=== PATIENT | female | born 1945 | race Caucasian/White ===

== ENCOUNTER 2016-12-05 09:21 | Outpatient (CLI) | payer MEDICARE, BC | END 2016-12-05 09:22 | disposition home or self-care (01) | DX: K76.0 Fatty (change of) liver, not elsewhere classified (principal); K76.89 Other specified diseases of liver; Q61.02 Congenital multiple renal cysts ==

== ENCOUNTER 2017-06-16 08:21 | Outpatient (CLI) | payer MEDICARE, BC ==
[2017-06-16 08:50] LABS: BASOPHILS % (AUTO) 0.9 %; EOSINOPHILS # (AUTO) 0.3 10^3/uL (0.0-0.7); EOSINOPHILS % (AUTO) 6.8 %; HCT - HEMATOCRIT 41.2 % (37.0-47.0); HGB - HEMOGLOBIN 13.5 g/dL (12.0-16.0); LYMPHOCYTES # (AUTO) 1.7 10^3/uL (1.5-3.5); LYMPHOCYTES % (AUTO) 38.2 %; MEAN CORPUSCULAR HEMOGLOBIN 27.9 pg (27.0-31.0); MEAN CORPUSCULAR HGB CONC 32.7 g/dL (32.0-36.0); MEAN CORPUSCULAR VOLUME 85.2 fL (81.0-99.0); MEAN PLATELET VOLUME 7.2 fL (7.9-10.8); MONOCYTES # (AUTO) 0.4 10^3/uL (0.0-1.0); MONOCYTES % (AUTO) 9.7 %; NEUTROPHILS # (AUTO) 1.9 10^3/uL (1.5-6.6); NEUTROPHILS % (AUTO) 44.4 %; RED BLOOD COUNT 4.83 10^6/uL (4.20-5.40); RED CELL DISTRIBUTION WIDTH 13.7 % (12.0-15.0); UNCORRECTED WHITE BLOOD COUNT 4.4 x10^3/uL; WHITE BLOOD COUNT 4.4 x10^3/uL (4.8-10.8)
[2017-06-16 09:14] LABS: ALBUMIN/GLOBULIN RATIO 1.4 (1.0-2.2); BILIRUBIN,TOTAL 0.5 mg/dL (0.2-1.0); BUN - BLOOD UREA NITROGEN 15 mg/dL (6-20); CALCIUM 9.3 mg/dL (8.5-10.3); CARBON DIOXIDE - CO2 28 mmol/L (21-32); CHLORIDE 103 mmol/L (101-111); CHOL/HDL RATIO 4.6 (<4.4); CHOLESTEROL 269 mg/dL; CREATININE 0.9 mg/dL (0.4-1.0); GFR - MDRD 62 (>89); GLUCOSE 96 mg/dL (70-100); HDL CHOLESTEROL 59 mg/dL; LDL/HDL RATIO 3.2 (<4.4); POTASSIUM 3.6 mmol/L (3.5-5.0); SODIUM 140 mmol/L (135-145); TOTAL PROTEIN 7.3 g/dL (6.7-8.2); TRIGLYCERIDES 122 mg/dL; VLDL CHOLESTEROL 24 mg/dL
[2017-06-16 09:25] LABS: THYROID STIMULATING HORMONE 2.14 uIU/mL (0.34-5.60)
[2017-06-16 09:32] LABS: FERRITIN 20.8 ng/mL (11.0-306.8)
== END 2017-06-16 08:22 | disposition home or self-care (01) ==
LOC: LAB 08:21
PROVIDERS: ATTEND Physician Assistant Medical
DX: E53.8 Deficiency of other specified B group vitamins (principal); D50.9 Iron deficiency anemia, unspecified; Z11.59 Encounter for screening for other viral diseases; Z72.89 Other problems related to lifestyle; I10 Essential (primary) hypertension; G43.909 Migraine, unspecified, not intractable, without status migrainosus; E78.2 Mixed hyperlipidemia; Z79.899 Other long term (current) drug therapy
CPT/HCPCS: 36415; 80053; 80061; 82607; 82728; 84443; 85025; 86803

== ENCOUNTER 2018-09-10 11:54 | Outpatient (CLI) | payer MEDICARE, BC ==
--- NOTE | 2018-09-10 12:36 | XRAY Report ---
Reason: TOE PAIN, RIGHT Procedure Date: 09/10/2018 Accession Number: [id number] / [id number] Procedure: XR - Foot 3 View RT CPT Code: FULL RESULT: EXAM: RIGHT FOOT RADIOGRAPHY EXAM DATE: 09/10/2018 12:05 PM. CLINICAL HISTORY: Toe pain, right. COMPARISON: None. TECHNIQUE: 3 views. FINDINGS: Bones: Fracture at the base of the fifth proximal phalanx without definite intra-articular extension demonstrated. Mild inferior calcaneal spurring. No fractures or bone lesions. Joints: Normal. No subluxations. Soft Tissues: Soft tissue swelling of the fifth toe. IMPRESSION: Fracture proximal fifth phalanx. RADIA The above findings of toe fracture were discussed with Sarah Grady by Dr. Yony Mobley at 12:34 hrs on 09/10/18.
== END 2018-09-10 11:55 | disposition home or self-care (01) ==
LOC: DI 11:54
PROVIDERS: ATTEND Physician Assistant Medical
DX: S92.511A Displaced fracture of proximal phalanx of right lesser toe(s), initial encounter for closed fracture (principal)

== ENCOUNTER 2018-10-17 08:00 | Outpatient (CLI) | payer MEDICARE, BC ==
[2018-10-17 13:31] LABS: BASOPHILS % (AUTO) 0.6 %; EOSINOPHILS # (AUTO) 0.1 10^3/uL (0.0-0.7); EOSINOPHILS % (AUTO) 2.5 %; HGB - HEMOGLOBIN 14.1 g/dL (12.0-16.0); LYMPHOCYTES # (AUTO) 1.3 10^3/uL (1.5-3.5); LYMPHOCYTES % (AUTO) 30.4 %; MEAN CORPUSCULAR HEMOGLOBIN 28.7 pg (27.0-31.0); MEAN CORPUSCULAR HGB CONC 33.4 g/dL (32.0-36.0); MEAN CORPUSCULAR VOLUME 85.9 fL (81.0-99.0); MEAN PLATELET VOLUME 7.7 fL (7.9-10.8); MONOCYTES # (AUTO) 0.4 10^3/uL (0.0-1.0); MONOCYTES % (AUTO) 9.2 %; NEUTROPHILS # (AUTO) 2.4 10^3/uL (1.5-6.6); NEUTROPHILS % (AUTO) 57.3 %; PLT - PLATELET COUNT 213 10^3/uL (130-450); RED BLOOD COUNT 4.93 10^6/uL (4.20-5.40); RED CELL DISTRIBUTION WIDTH 14.2 % (12.0-15.0); WHITE BLOOD COUNT 4.2 x10^3/uL (4.8-10.8)
[2018-10-17 13:44] LABS: ALBUMIN/GLOBULIN RATIO 1.3 (1.0-2.2); BILIRUBIN,TOTAL 0.7 mg/dL (0.2-1.0); CALCIUM 8.8 mg/dL (8.5-10.3); CREATININE 0.8 mg/dL (0.4-1.0); MAGNESIUM 2.1 mg/dL (1.7-2.8); TOTAL PROTEIN 7.1 g/dL (6.7-8.2)
[2018-10-17 14:08] LABS: TOTAL T3 1.89 ng/mL (0.87-1.78)
== END 2018-10-17 23:59 | disposition home or self-care (01) ==
LOC: LAB.R 08:00
PROVIDERS: ATTEND Physician Assistant Medical
DX: I10 Essential (primary) hypertension (principal); R00.2 Palpitations; Z79.899 Other long term (current) drug therapy
CPT/HCPCS: 80053; 83735; 84443; 84480; 85025

== ENCOUNTER 2018-10-31 12:50 | Outpatient (CLI) | payer MEDICARE, BC ==
--- NOTE | 2018-11-01 08:50 | Mammography Report ---
Reason: SCREENING MAMMO Procedure Date: 10/31/2018 Accession Number: [id number] / [id number] Procedure: ANDREIA - Screening Mammo w/Morris CPT Code: FULL RESULT: EXAM: Screening Mammo w/Morris DATE: 10/31/2018 1:35 PM CLINICAL HISTORY: Screening encounter. Family history of breast cancer in a sister at the age of 74. History of benign right breast biopsy. TECHNIQUE: Bilateral CC and MLO views were obtained. COMPARISON: 07/06/2017 through 11/20/2013. FINDINGS: The breasts demonstrate scattered fibroglandular densities bilaterally. There are coarse typically benign calcifications. A focal asymmetry in the left breast seen on CC slice 14 approximately 8.5 cm from the nipple measures 0.8 cm and is questionably present on previous examinations but less prominent. The finding is also seen approximately 8 cm from the nipple on the left MLO view where it comes into focus on slice 61, upper central left breast finding. This requires additional evaluation by spot magnification views and if applicable ultrasound. No suspicious masses, clustered microcalcifications, or regions of architectural distortion are identified in the right breast. IMPRESSION: Incomplete examination RECOMMENDATION: Additional evaluation as above. Spot evaluation of the left upper central breast, possibly additional ultrasound. BIRADS CATEGORY 0: Incomplete examination STANDARD QUALIFYING STATEMENTS: 1. This examination was not reviewed with the aid of Computer-Aided Detection (CAD). 2. A negative or benign imaging report should not delay biopsy if clinically suspicious findings are present. Consider surgical consultation if warrented. More than 5% of cancers are not identified by imaging. 3. Dense breasts may obscure an underlying neoplasm. 4. This examination was reviewed with the aid of 3D breast imaging (tomosynthesis).
== END 2018-10-31 12:51 | disposition home or self-care (01) ==
LOC: DI 12:50
DX: Z12.31 Encounter for screening mammogram for malignant neoplasm of breast (principal); Z80.3 Family history of malignant neoplasm of breast
CPT/HCPCS: 77063; 77067

== ENCOUNTER 2018-11-08 09:41 | Outpatient (CLI) | payer MEDICARE, BC ==
--- NOTE | 2018-11-08 14:49 | Mammography Report ---
Reason: ABN MAMMO - LT SPEC VIEWS Procedure Date: 11/08/2018 Accession Number: [id number] / [id number] Procedure: ANDREIA - Diag Special Views Dig LT CPT Code: FULL RESULT: EXAM: Diag Special Views Dig LT DATE: 11/08/2018 10:37 AM CLINICAL HISTORY: Diagnostic examination. Patient is recalled from screening for a left breast focal asymmetry. TECHNIQUE: Left breast ML and spot MLO as well as spot CC images are obtained. Focused left breast ultrasound is performed. COMPARISON: 10/31/2018 through 11/20/2013. FINDINGS: Left breast demonstrates scattered fibroglandular densities. The left breast focal asymmetry resolves mammographically with spot views as well as on tomography. Focused left breast ultrasound identifies normal breast tissue as well as a typically benign appearing lymph node at the 2:00 position 8 cm from the nipple measures up to 0.9 cm and is separately confirmed mammographically and a simple 0.7 cm cyst 1 cm from the nipple which is also separately confirmed mammographically. No suspicious findings are sonographically seen in the region of the previous focal asymmetry. The previous focal asymmetry therefore represents overlap of normal breast tissue. No suspicious calcifications, masses or architectural distortion are identified. IMPRESSION: Benign findings RECOMMENDATION: Recommend routine annual Screening mammography unless otherwise clinically indicated. BIRADS CATEGORY 2: Benign findings STANDARD QUALIFYING STATEMENTS: 1. This examination was not reviewed with the aid of Computer-Aided Detection (CAD). 2. A negative or benign imaging report should not delay biopsy if clinically suspicious findings are present. Consider surgical consultation if warrented. More than 5% of cancers are not identified by imaging. 3. Dense breasts may obscure an underlying neoplasm. 4. This examination was reviewed with the aid of 3D imaging (tomography).
== END 2018-11-08 09:42 | disposition home or self-care (01) ==
LOC: DI 09:41
PROVIDERS: ATTEND Physician Assistant Medical
DX: R92.8 Other abnormal and inconclusive findings on diagnostic imaging of breast (principal)
CPT/HCPCS: 76642

== ENCOUNTER 2019-06-13 09:57 | Emergency (ER) | payer MEDICARE, BC ==
--- NOTE | 2019-06-13 10:21 | ED Physician Documentation ---
History of Present Illness - Stated complaint Stated Complaint: SYNCOPE/ALOC - Additonal information Additional information: This is a 74-year-old female with a history of hypertension, hypothyroidism, presents of an episode of syncope. Patient states around an hour prior to arr ival she got up and was pouring herself a cup of coffee and she began to feel lightheaded, and then she passed out for just 1 second or so. She fell and hit her right elbow which is a little sore but she is able to move it without issue. She does not think she hit her head. She denies any chest pain, or shortness of breath. She has not had syncope in the past. No feeling of palpitations, no weakness or numbness. Patient states she does feel a little "out of it", and her states that around the event she was having trouble remembering the date. She denies headache, though she has a history of ocular migraines. She states that she has never had a migraine that has presented like this. Review of Systems Constitutional: denies: Fever Eyes: denies: Loss of vision Nose: denies: Congestion Cardiac: denies: Chest pain / pressure Respiratory: denies: Dyspnea GI: denies: Abdominal Pain : denies: Dysuria Skin: denies: Rash Musculoskeletal: denies: Neck pain Neurologic: reports: Syncope. denies: Numbness Immunocompromised: denies: Immunocompromised PD PAST MEDICAL HISTORY - Past Medical History Cardiovascular: Hypertension, High cholesterol Respiratory: None Endocrine/Autoimmune: None GI: GERD, Diverticulitis : None HEENT: Chronic sinusitis Psych: None Musculoskeletal: Osteoarthritis Derm: None - Past Surgical History Past Surgical History: Yes General: Colonoscopy Ortho: Arthroscopic surgery, Other - Present Medications Home Medications: Ambulatory Orders Medication Instructions Recorded Confirmed Lisinopril 20 mg PO DAILY 10/09/13 08/24/14 Omeprazole 20 mg PO ONCEDAILY 10/09/13 08/24/14 Fluticasone [Flonase] 1 sprays ANABELL DAILY 08/13/14 08/24/14 ALPRAZolam [Xanax] 0.25 mg PO ONCE PRN 08/15/14 08/24/14 Oxycodone HCl/Acetaminophen 1 - 2 tab QID PRN 08/24/14 08/24/14 [Percocet 5-325 mg Tablet] - Allergies Allergies/Adverse Reactions: Allergies Allergy/AdvReac Type Severity Reaction Status Date / Time lactose AdvReac Intermediate Cramps Uncoded 06/13/19 10:21 - Social History Does the pt smoke?: No Smoking Status: Never smoker Does the pt drink ETOH?: Yes Does the pt have substance abuse?: No - Immunizations Immunizations are current?: Yes PD ED PE NORMAL - Vitals Vital signs reviewed: Yes - General General: Alert and oriented X 3, No acute distress - HEENT HEENT: Atraumatic, PERRL - Neck Neck: Supple, no meningeal sign - Cardiac Cardiac: RRR, No murmur - Respiratory Respiratory: No respiratory distress, Clear bilaterally - Abdomen Abdomen: Soft, Non tender, Non distended - Derm Derm: Warm and dry - Extremities Extremities: Other (Mild edema and slight tenderness of the right elbow with full range of motion of the elbow. 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 No dysphasia. No arm or leg drift.) - Psych Psych: Normal mood, Normal affect Results - Vitals Vitals: Vital Signs - 24 hr 06/13/19 06/13/19 06/13/19 10:00 10:37 11:04 Temperature 36.8 C Heart Rate 88 89 90 Respiratory 16 16 14 Rate Blood Pressure 140/82 H 152/77 H 131/70 H O2 Saturation 99 100 97 06/13/19 06/13/19 11:44 12:40 Temperature 37.0 C Heart Rate 87 89 Respiratory 15 21 Rate Blood Pressure 127/62 126/71 O2 Saturation 96 98 Oxygen O2 Source Room air - EKG (time done) 10:04 Other comments: Other comments (Rate 87, rhythm sinus, there is no ST segment elevation or depression. Low voltage in precordial leads. Left axis deviation and borderline left ventricular hypertrophy by voltage criteria in aVL.) - Labs Labs: Laboratory Tests 06/13/19 06/13/19 06/13/19 10:20 10:20 10:25 WBC 5.6 RBC 4.92 Hgb 13.7 Hct 44.2 MCV 89.8 MCH 27.8 MCHC 31.0 L RDW 13.4 Plt Count 196 MPV 9.0 Neut # (Auto) 4.4 Lymph # (Auto) 0.5 L Hunt # (Auto) 0.4 Eos # (Auto) 0.1 Baso # (Auto) 0.0 Absolute Nucleated RBC 0.00 Nucleated RBC % 0.0 Sodium 138 Potassium 3.9 Chloride 103 Carbon Dioxide 26 Anion Gap 9.0 BUN 24 H Creatinine 0.9 Estimated GFR (MDRD) 62 L Glucose 103 H Calcium 9.0 Total Bilirubin 0.7 AST 19 ALT 14 Alkaline Phosphatase 40 L Troponin I High Sens 5.0 Total Protein 6.9 Albumin 4.1 Globulin 2.8 Albumin/Globulin Ratio 1.5 Lipase 38 Urine Color Urine Clarity Urine pH Ur Specific Fork Urine Protein Urine Glucose (UA) Urine Ketones Urine Occult Blood Urine Nitrite Urine Bilirubin Urine Urobilinogen Ur Leukocyte Esterase Urine RBC Urine WBC Ur Squamous Epith Cells Urine Bacteria Ur Microscopic Review Urine Culture Comments 06/13/19 11:51 WBC RBC Hgb Hct MCV MCH MCHC RDW Plt Count MPV Neut # (Auto) Lymph # (Auto) Hunt # (Auto) Eos # (Auto) Baso # (Auto) Absolute Nucleated RBC Nucleated RBC % Sodium Potassium Chloride Carbon Dioxide Anion Gap BUN Creatinine Estimated GFR (MDRD) Glucose Calcium Total Bilirubin AST ALT Alkaline Phosphatase Troponin I High Sens Total Protein Albumin Globulin Albumin/Globulin Ratio Lipase Urine Color YELLOW Urine Clarity CLEAR Urine pH 6.0 Ur Specific Fork 1.010 Urine Protein NEGATIVE Urine Glucose (UA) NEGATIVE Urine Ketones NEGATIVE Urine Occult Blood SMALL H Urine Nitrite NEGATIVE Urine Bilirubin NEGATIVE Urine Urobilinogen 0.2 (NORMAL) Ur Leukocyte Esterase NEGATIVE Urine RBC 0-5 Urine WBC 0-3 Ur Squamous Epith Cells MANY Squamous H Urine Bacteria None Seen Ur Microscopic Review INDICATED Urine Culture Comments NOT INDICATED - Rads (name of study) CT head WO Radiology: Other (No acute intracranial hemorrhage or abnormality. Old lacunar infarcts.) CXR Radiology: Other (No acute cardiopulmonary abnormality) POC echo Radiology: Other ([id number] bedside echocardiogram shows no pericardial effusion, grossly normal ejection fraction.) PD MEDICAL DECISION MAKING - ED course Complexity details: considered differential (Dehydration, vasovagal episode, seizure, dysrhythmia, ACS, migraine, stroke, orthostatic hypotension, electrolyte abnormality) ED course: Pt presents with brief syncope and her also states she had slight confusion around the time of the syncope. Her neurologic exam is completely normal. She never had any numbness, weakness, slurred speech, or facial droop and has no signs of stroke or TIA, which would also be unlikely to cause syncope. No features to suggest seizure. NOosigns of infection. She has no chest pain, shortness of breath, or palpitations, her EKG shows no signs of dysrhythmia or ischemia, bedside echo shows grossly normal LVEF and no pe ricardial effusion, and her troponin and CXR are negative, making cardiac cause of her syncope unlikely. Labs are unremarkable. CT head is negative for acute intracranial abnormality. On re-evaluation patient is well-appearing, and asymptomatic, with a normal neurologic exam. UA negative for infection. I discussed with patient that I am not sure what caused her syncope, there may have been an orthostatic component. Her confusion may have been from a concussion, or possibly an atypical migraine, but it has resolved at this time. I discussed return precautions including any syncope, seizure, chest pain, shortness of breath, confusion, weakness, numbness, or other concerning symptoms. I emphasized the importance of close PCP follow up. Patient verbalized understanding and was discharged in the care of her . Departure - Departure Disposition: 01 Home, Self Care Clinical Impression: Syncope Qualifiers: Syncope type: unspecified Qualified Code(s): R55 - Syncope and collapse Condition: Good Instructions: ED Fainting Unkn Cause Follow-Up: Albaro Tyler MD [Primary Care Provider] - Within 1 week Comments: You were seen today for passing out and an episode of confusion. Your labs and CT scan do not show an obvious cause of your symptoms. Given that you are feeling better, I think it is safe for you to follow-up with your primary care provider. If you develop any recurrence of your confusion, more episodes of passing out, chest pain, palpitations, severe headache, fever, or any other concerning symptoms, return to the emergency department. Discharge Date/Time: 06/13/19 12:40
[2019-06-13 10:35] LABS: BASOPHILS % (AUTO) 0.5 %; EOSINOPHILS # (AUTO) 0.1 10^3/uL (0.0-0.7); EOSINOPHILS % (AUTO) 2.5 %; HGB - HEMOGLOBIN 13.7 g/dL (12.0-16.0); LYMPHOCYTES # (AUTO) 0.5 10^3/uL (1.5-3.5); LYMPHOCYTES % (AUTO) 9.1 %; MEAN CORPUSCULAR HEMOGLOBIN 27.8 pg (27.0-31.0); MEAN CORPUSCULAR VOLUME 89.8 fL (81.0-99.0); MONOCYTES # (AUTO) 0.4 10^3/uL (0.0-1.0); MONOCYTES % (AUTO) 7.9 %; NEUTROPHILS # (AUTO) 4.4 10^3/uL (1.5-6.6); NEUTROPHILS % (AUTO) 79.6 %; PLT - PLATELET COUNT 196 10^3/uL (130-450); RED BLOOD COUNT 4.92 10^6/uL (4.20-5.40); RED CELL DISTRIBUTION WIDTH 13.4 % (12.0-15.0); WHITE BLOOD COUNT 5.6 x10^3/uL (4.8-10.8)
[2019-06-13] MEDS ORDERED: SODIUM CHLORIDE 0.9% 1,000 ML IV ONE (10:38)
[2019-06-13 10:44] LABS: ALBUMIN 4.1 g/dL (3.2-5.5); ALBUMIN/GLOBULIN RATIO 1.5 (1.0-2.2); BILIRUBIN,TOTAL 0.7 mg/dL (0.2-1.0); CREATININE 0.9 mg/dL (0.4-1.0); TOTAL PROTEIN 6.9 g/dL (6.7-8.2)
--- NOTE | 2019-06-13 11:08 | CT Report ---
Reason: Syncope, slight confusion Procedure Date: 06/13/2019 Accession Number: [id number] / [id number] Procedure: CT - HEAD WO CPT Code: FULL RESULT: EXAM: CT HEAD EXAM DATE: 06/13/2019 01:00 AM. CLINICAL HISTORY: Syncope, slight confusion. COMPARISON: None. TECHNIQUE: Multiaxial CT images were obtained from the foramen magnum to the vertex. Reformats: Sagittal and coronal. IV contrast: None. In accordance with CT protocol optimization, one or more of the following dose reduction techniques were utilized for this exam: automated exposure control, adjustment of mA and/or KV based on patient size, or use of iterative reconstructive technique. FINDINGS: Parenchyma: No acute intracranial hemorrhage or midline shift. Foci of encephalomalacia in the left basal ganglia consistent with old lacunar infarcts. Mild periventricular white matter changes consistent with chronic ischemic small vessel disease. Extraaxial Spaces: Normal for age. No subdural or epidural collections identified. Ventricles: Normal in size and position. Sinuses and Orbits: Imaged paranasal sinuses, orbits, and mastoids show no significant abnormality. Bones: No evidence of fracture or calvarial defect. Other: None. IMPRESSION: No acute intracranial hemorrhage or mass effect identified. The calvarium appears intact. Old lacunar infarcts left basal ganglia. RADIA
--- NOTE | 2019-06-13 11:16 | XRAY Report ---
Reason: syncope Procedure Date: 06/13/2019 Accession Number: [id number] / [id number] Procedure: XR - Chest 2 View X-Ray CPT Code: 46325 FULL RESULT: EXAM: CHEST RADIOGRAPHY EXAM DATE: 06/13/2019 10:56 AM. CLINICAL HISTORY: Syncope. COMPARISON: XR CHEST PA AND LAT 06/08/2007 3:10 PM. TECHNIQUE: 2 views. FINDINGS: Lungs/Pleura: No focal opacities evident. No pleural effusion. No pneumothorax. Normal volumes. Mediastinum: Tortuous thoracic aorta with atherosclerotic calcifications. Other: Generalized thoracolumbar kyphosis. IMPRESSION: No consolidation. RADIA
[2019-06-13 12:00] LABS: BILIRUBIN,URINE NEGATIVE (NEGATIVE); GLUCOSE, URINE (UA) NEGATIVE (NEGATIVE); KETONES,URINE (UA) NEGATIVE (NEGATIVE); LEUKOCYTE ESTERASE, URINE NEGATIVE (NEGATIVE); NITRITE,URINE NEGATIVE (NEGATIVE); OCCULT BLOOD,URINE SMALL (NEGATIVE); PROTEIN,URINE NEGATIVE (NEGATIVE); UROBILINOGEN,URINE 0.2 (NORMAL) E.U./dL (NORMAL)
[2019-06-13 12:02] LABS: CLARITY,URINE CLEAR (CLEAR)
[2019-06-13 12:22] LABS: BACTERIA,URINE None Seen /HPF (None Seen); RBC,URINE 0-5 /HPF (0-5); SQUAMOUS EPITHELIAL CELL,UR MANY Squamous (<= Few)
[2019-06-13 12:40] VITALS: BP 126/71
== END 2019-06-13 12:40 | disposition home or self-care (01) ==
LOC: ED 09:57
DX: R55 Syncope and collapse (principal); R41.0 Disorientation, unspecified; M25.521 Pain in right elbow; W18.30XA Fall on same level, unspecified, initial encounter; Y93.89 Activity, other specified; Y92.009 Unspecified place in unspecified non-institutional (private) residence as the place of occurrence of the external cause; I10 Essential (primary) hypertension; E03.9 Hypothyroidism, unspecified
CPT/HCPCS: 36415; 70450; 71046; 80053; 81001; 81003; 83690; 84484; 85025; 87086; 93005; 96360; 99284

== ENCOUNTER 2019-11-08 15:14 | Outpatient (CLI) | payer MEDICARE, BC ==
--- NOTE | 2019-11-11 13:21 | DEXA Report ---
Reason: MENOPAUSAL Procedure Date: 11/08/2019 Accession Number: [id number] / [id number] Procedure: DEX - Dexa Spine and/or Hip CPT Code: Final Report FULL RESULT: EXAM: Dexa Spine and/or Hip DATE: 11/08/2019 3:36 PM CLINICAL HISTORY: MENOPAUSAL TECHNIQUE: Dual energy x-ray absorptiometry (DXA) was performed on a [employer] System. Regions measured are the AP Spine, femoral neck, and if needed forearm. COMPARISON: 04/21/2016. In accordance with the International Society for Clinical Densitometry (ISCD) guidelines, data from previous exams may be reanalyzed using current recommendations and techniques. This is done to allow a more accurate basis for comparison with the current study. FINDINGS: The data for the lumbar spine is as follows: BMD (g/cm/cm) T-SCORE Z-SCORE REGION L1 1.083 -0.4 0.9 L2 1.193 -0.1 1.2 L3 1.350 1.3 2.5 L4 1.262 0.5 1.8 TOTAL 1.230 0.4 1.7 NOTE: All evaluable vertebrae are used for classification The data for the hip is as follows: BMD (g/cm/cm) T-SCORE Z-SCORE REGION Neck 0.890 -1.1 0.4 TOTAL 0.923 -0.7 0.6 NOTE: The femoral neck or total proximal femur, whichever is lowest, is used for classification. DXA RESULTS SUMMARY: Spine SCAN DATE AGE BMD CHANGE VS CHANGE VS PREVIOUS PREVIOUS % [birth year][age]08[birth year]2019 [age] 1.230 0.099* 8.8* 04/21/2016 [age] 1.131 * Denotes significant change at the 95% confidence level. Denotes dissimilar scan types or analysis methods. DXA RESULTS SUMMARY: Hip SCAN DATE AGE BMD CHANGE VS CHANGE VS PREVIOUS PREVIOUS % [birth year]2019 [age] 0.923 0.003 0.3 04/21/2016 [age] 0.920 * Denotes significant change at the 95% confidence level. Denotes dissimilar scan types or analysis methods. IMPRESSION: THE WHO CLASSIFICATION BASED ON THE INTERNATIONAL REFERENCE STANDARD IS OSTEOPENIA. THE FRACTURE RISK IS INCREASED. Interval decrease in bone density in the lumbar spine is statistically significant. RECOMMENDATION: Patients with diagnosis of osteoporosis or osteopenia should have regular bone mineral density assessment. For those eligible for Medicare, routine testing is allowed once every 2 years. Testing frequency can be increased for patients who have rapidly progressing disease or for those who are receiving medical therapy to restore bone mass. COMMENT: World Health Organization (WHO) definitions for osteoporosis and osteopenia: NORMAL BMD: T-score at -1.0 or higher, fracture risk is low OSTEOPENIA BMD: T-score between -1.0 and -2.5, fracture risk is increased. OSTEOPOROSIS BMD: T-score at -2.5 or lower, fracture risk is high. National Osteoporosis Foundation recommends: 1. Obtain adequate dietary calcium (at least 1200 mg per day) and vitamin D (400-800 international units per day). 2. Participate, as appropriate, in regular weightbearing and muscle-strengthening exercise. 3. Avoid tobacco use and reduce alcohol and caffeine intake. 4. For more detailed information see the website at www.NOF.org.
== END 2019-11-08 15:15 | disposition home or self-care (01) ==
LOC: DI 15:14
PROVIDERS: ATTEND Nurse Practitioner
DX: M85.88 Other specified disorders of bone density and structure, other site (principal)
CPT/HCPCS: 77080

== ENCOUNTER 2021-01-04 16:43 | Outpatient (CLI) | payer MEDICARE, BC | END 2021-01-04 16:44 | disposition home or self-care (01) | LOC: COV 16:43 | PROVIDERS: ATTEND Surgery | DX: Z01.812 Encounter for preprocedural laboratory examination (principal); K21.9 Gastro-esophageal reflux disease without esophagitis; Z80.0 Family history of malignant neoplasm of digestive organs; Z20.822 Contact with and (suspected) exposure to COVID-19 ==

== ENCOUNTER 2021-01-07 07:13 | Day surgery (SDC) | payer MEDICARE, BC ==
[~2021-01-07 07:13] MED LIST: BENZOCAINE/TETRACAINE/BUTAMBEN 20 GM ONE; LIDO GARGLE 30 ML BOTTLE ONE
[2021-01-07] MEDS ORDERED: LACTATED RINGERS 1,000 ML IV ONE ×2 (07:55→09:20)
[2021-01-07] MEDS ORDERED: fentaNYL 250 MCG/5 ML VIAL ONE (08:10)
[2021-01-07] MEDS ORDERED: MIDAZOLAM 2 MG/2 ML VIAL ONE ×2 (08:10→09:01)
[2021-01-07] MEDS ORDERED: LIDO GARGLE 30 ML BOTTLE PO ONE (08:40)
[2021-01-07] MEDS ORDERED: BENZOCAINE/TETRACAINE/BUTAMBEN 20 GM TOP ONE (08:41)
[2021-01-07 09:42] VITALS: BP 127/56
== END 2021-01-07 07:14 | disposition home or self-care (01) ==
LOC: SDS 07:13
PROVIDERS: ATTEND Surgery
PROC: 0DB68ZX Excision of Stomach, Via Natural or Artificial Opening Endoscopic, Diagnostic (ICD-10-PCS; 2021-01-07)
PROC: 0DB58ZX Excision of Esophagus, Via Natural or Artificial Opening Endoscopic, Diagnostic (ICD-10-PCS; 2021-01-07)
PROC: 0DJD8ZZ Inspection of Lower Intestinal Tract, Via Natural or Artificial Opening Endoscopic (ICD-10-PCS; principal; 2021-01-07 08:15)
PROC: 0DB98ZX Excision of Duodenum, Via Natural or Artificial Opening Endoscopic, Diagnostic (ICD-10-PCS; 2021-01-07 08:15)
DX: Z12.11 Encounter for screening for malignant neoplasm of colon (principal); K21.9 Gastro-esophageal reflux disease without esophagitis; K57.32 Diverticulitis of large intestine without perforation or abscess without bleeding; K57.30 Diverticulosis of large intestine without perforation or abscess without bleeding; K64.8 Other hemorrhoids; K64.4 Residual hemorrhoidal skin tags; K31.9 Disease of stomach and duodenum, unspecified; Z80.0 Family history of malignant neoplasm of digestive organs
CPT/HCPCS: 43239; A9270; G0105; J3010; J7120

== ENCOUNTER 2021-07-09 14:04 | Outpatient (CLI) | payer MEDICARE, BC ==
--- NOTE | 2021-07-12 08:21 | Mammography Report ---
BILATERAL DIGITAL SCREENING MAMMOGRAM 3D/2D: 07/09/2021 CLINICAL: Routine screening. Comparison is made to exams dated: 11/11/2019 mammogram, 11/08/2018 mammogram, 10/31/2018 mammogram, mammogram, and 01/12/2016 mammogram - [facility]. There are scattered fibrog landular elements in both breasts. There are benign calcifications in both breasts. No significant masses, calcifications, or other findings are seen in either breast. There has been no significant interval change. IMPRESSION: BENIGN There is no mammographic evidence of malignancy. A 1 year screening mammogram is recommended. This exam was interpreted at Station ID: [id number]. NOTE: For mammograms, a report in lay terms will be sent to the patient. Approximately 15% of breast malignancies will not be visualized mammographically. In the management of a palpable breast mass, a negative mammogram must not discourage biopsy of a clinically suspicious lesion. Electronically Signed By: Demond madsen/carlton:07/09/2021 16:46:12 ACR BI-RADS Category 2: Benign Finding(s) 3342F PARENCHYMAL PATTERN: (A) - The breast(s) demonstrate(s) scattered fibroglandular densities. BI-RADS CATEGORY: (2) - 2 RECOMMENDATION: (ANNUAL) - Recommend routine annual screening mammography. [id number] 1 year screening LATERALITY: (B)
== END 2021-07-09 14:05 | disposition home or self-care (01) ==
LOC: DI 14:04
DX: Z12.31 Encounter for screening mammogram for malignant neoplasm of breast (principal)

== ENCOUNTER 2021-10-05 08:00 | Outpatient (CLI) | payer MEDICARE, BC | END 2021-10-05 23:59 | LOC: LAB.N 08:00 | PROVIDERS: ATTEND Nurse Practitioner | DX: N39.0 Urinary tract infection, site not specified (principal) | CPT/HCPCS: 87077; 87086; 87181 ==

== ENCOUNTER 2022-11-22 13:11 | Outpatient (CLI) | payer MEDICARE, BC ==
--- NOTE | 2022-11-23 08:59 | Mammography Report ---
BILATERAL DIGITAL SCREENING MAMMOGRAM 3D/2D: 11/22/2022 CLINICAL: Routine screening. Comparison is made to exams dated: 07/09/2021 mammogram, 11/11/2019 mammogram, 11/08/2018 mammogram, mammogram, 07/06/2017 mammogram, and 01/12/2016 mammogram - [facility]. There are scattered areas of fibroglandular density in both breasts (category b / 25%-50% glandular t issue). There are benign calcifications in both breasts. No significant masses, calcifications, or other findings are seen in either breast. There has been no significant interval change. IMPRESSION: BENIGN There is no mammographic evidence of malignancy. A 1 year screening mammogram is recommended. Based on the Tyrer Cuzick model (a risk assessment model) the patients lifetime risk is 10.3% and he r 10 year risk is 10.3%. According to the ACR, ACS, and NCCN guidelines, an annual breast MRI exam al fernando with mammogram is recommended if the patients lifetime risk is 20% or greater. This exam was interpreted at Station ID: [id number]. NOTE: For mammograms, a report in lay terms will be sent to the patient. Approximately 15% of breast malignancies will not be visualized mammographically. In the management of a palpable breast mass, a negative mammogram must not discourage biopsy of a clinically suspicious lesion. Electronically Signed By: Sondra gonzalez/carlton:11/22/2022 17:09:31 letter sent: No_Letter ACR BI-RADS Category 2: Benign Finding(s) 3342F PARENCHYMAL PATTERN: (A) - The breast(s) demonstrate(s) scattered fibroglandular densities. BI-RADS CATEGORY: (2) - 2 Mammogram [id number] 1 year screening LATERALITY: (B)
== END 2022-11-22 13:12 | disposition home or self-care (01) ==
LOC: DI 13:11
DX: Z12.31 Encounter for screening mammogram for malignant neoplasm of breast (principal)

== ENCOUNTER 2024-02-17 11:27 | Outpatient (CLI) | payer MEDICARE, BC ==
--- NOTE | 2024-02-18 14:12 | XRAY Report ---
PROCEDURE: Knee 3V LT INDICATIONS: OSTEOARTHRITIS TECHNIQUE: 3 views of the knee(s) were acquired. COMPARISON: None. FINDINGS: Bones: No fractures or dislocations. Severe lateral and moderate medial and patellofemoral compartm ent joint space narrowing and juxta-articular osteophytosis. Corticated ossific density posterior to the lateral femoral condyle compatible with an accessory os fabella. No suspicious bony lesions. Soft tissues: No knee joint effusion. No suspicious soft tissue calcifications or masses. IMPRESSION: 1.No acute bony abnormality. If there remains a high clinical concern for fracture, consider cross-se ctional imaging now. If pain persists, consider repeat x-ray in 10-14 days or cross-sectional imaging . 2.Severe lateral and moderate medial and patellofemoral compartment osteoarthritis. Reviewed by: Wilma Ayala MD on 02/18/2024 2:11 PM PDT Approved by: Wilma Ayala MD on 02/18/2024 2:11 PM PDT Station ID: [id number]
--- NOTE | 2024-02-18 14:59 | XRAY Report ---
PROCEDURE: Hip w/Pelvis 2-3V LT INDICATIONS: Osteoarthritis TECHNIQUE: 2 views of the hip were acquired. COMPARISON: None. FINDINGS: Bones: No fractures or dislocations. Moderate bilateral femoroacetabular joint space narrowing and juxta-articular osteophytosis. Degenerative changes of the lower lumbar spine and bilateral SI joints . No suspicious bony lesions. Soft tissues: No suspicious soft tissue calcifications or masses. Surgical staple line in the pelvi s. IMPRESSION: 1.No acute bony abnormality. If there remains a high clinical concern for fracture, consider cross-se ctional imaging now. If pain persists, consider repeat x-ray in 10-14 days or cross-sectional imaging . 2.Moderate bilateral hip osteoarthritis, symmetric. Reviewed by: Wilma Ayala MD on 02/18/2024 2:58 PM PDT Approved by: Wilma Ayala MD on 02/18/2024 2:58 PM PDT Station ID: [id number]
== END 2024-02-17 11:28 | disposition home or self-care (01) ==
LOC: DI 11:27
PROVIDERS: ATTEND Physician Assistant
DX: M16.0 Bilateral primary osteoarthritis of hip (principal); M17.12 Unilateral primary osteoarthritis, left knee

== ENCOUNTER 2024-04-13 10:08 | Outpatient (CLI) | payer MEDICARE, BC ==
--- NOTE | 2024-04-14 10:00 | XRAY Report ---
PROCEDURE: Knee 4+V LT INDICATIONS: OSTEOARTHRITIS, KNEE LEFT MILD TECHNIQUE: 4 views of the knee(s) were acquired. COMPARISON: None. FINDINGS: Bones: No fractures or dislocations. No suspicious bony lesions. Mild to moderate tricompartmenta l osteoarthritis. Kellgren-Washington scale of osteoarthritis: 2. Subchondral sclerosis and cystic holm ge present in the lateral tibial femoral compartment. Soft tissues: No knee joint effusion. No suspicious soft tissue calcifications or masses. IMPRESSION: Moderate to severe left knee osteoarthritis. Reviewed by: Darin Connor MD on 04/14/2024 9:58 AM PDT Approved by: Darin Connor MD on 04/14/2024 9:58 AM PDT Station ID: [id number]
== END 2024-04-13 10:09 | disposition home or self-care (01) ==
LOC: DI 10:08
PROVIDERS: ATTEND Physician Assistant Surgical
DX: M17.12 Unilateral primary osteoarthritis, left knee (principal)

== ENCOUNTER 2024-06-03 09:27 | Outpatient (CLI) | payer MEDICARE, BC ==
--- NOTE | 2024-06-03 16:58 | XRAY Report ---
PROCEDURE: Hip w/Pelvis 2-3V LT INDICATIONS: LEFT HIP OSTEOARTHRITIS TECHNIQUE: AP view the pelvis and lateral view of the left hip. COMPARISON: Left hip radiographs 02/17/2024 FINDINGS: Bones: No acute fractures or dislocations. No suspicious bony lesions. Mild degenerative changes in the hips bilaterally. Degenerative changes also seen in the included spine. Soft tissues: No suspicious soft tissue calcifications. Surgical suture material projecting over the pelvis. IMPRESSION: Mild bilateral hip osteoarthrosis. Degenerative changes are also seen in the lumbar spine. Reviewed by: Jac Puente MD on 06/03/2024 4:56 PM PDT Approved by: Jac Puente MD on 06/03/2024 4:56 PM PDT Station ID: [id number]
== END 2024-06-03 09:28 | disposition home or self-care (01) ==
LOC: DI 09:27
PROVIDERS: ATTEND Orthopaedic Surgery
DX: M16.0 Bilateral primary osteoarthritis of hip (principal); M47.816 Spondylosis without myelopathy or radiculopathy, lumbar region